=== PATIENT | male | born 1975 | race Caucasian/White ===

== ENCOUNTER 2018-01-10 09:24 | Observation (INO) | payer BC ==
[2018-01-10] MEDS ORDERED: Sodium Chloride 0.9% 2.5 ML Syringe FLUSH PRN (09:43)
[2018-01-10] MEDS ORDERED: Aspirin 81 MG Tab.Chew PO ONE (09:43)
[2018-01-10] MEDS ORDERED: Sodium Chloride 0.9% 10 ML Syringe FLUSH PRN (09:43)
[2018-01-10] MEDS ORDERED: Ketorolac 30 MG/ML SDV IVPUSH ONE (09:43)
[2018-01-10] MEDS ORDERED: Morphine 10 MG/ML Syringe IVPUSH ONE (09:43)
[2018-01-10] MEDS ORDERED: Sodium Chloride 0.9% 1,000 ML IV ONE (09:43)
--- NOTE | 2018-01-10 09:47 | EDM.PDOC ---
ED HPI GENERAL MEDICAL PROBLEM - General Chief Complaint: Chest Pain Stated Complaint: CHEST PAIN Time Seen by Provider: 01/10/18 09:32 - History of Present Illness INITIAL COMMENTS - FREE TEXT/NARRATIVE: HISTORY AND PHYSICAL: History of present illness: The patient is a 42-year-old male with a history of sleep apnea for which he uses C Pap and hypercholesterolemia and follows with a provider at [facility] and presents with complaints of sudden onset of posterior left back pain that radiates around to his left chest. He is not short of breath or diaphoretic and has no abdominal complaints. He does not have a history of hypertension and he has had no recent trauma. The patient has no family history of cardiac disease. The patient smokes a pack and a half of cigarettes a day but has no other drug use history. He describes the pain as sharp and stabbing and is worse when he takes a deep breath. He does not feel short of breath right now or nauseated. He had a completely normal day yesterday and slept fine through the night and had a normal morning when these symptoms started about an hour and a half ago while he was driving a car. 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 The patient took 2 baby aspirin prior to coming here and the pain is still present. He has had no recent new cough or upper respiratory symptoms. Review of systems: As per history of present illness and below otherwise all systems reviewed and negative. Past medical history: As per history of present illness and as reviewed below otherwise noncontributory. Surgical history: As per history of present illness and as reviewed below otherwise noncontributory. Social history: No reported history of drug or alcohol abuse. Family history: As per history of present illness and as reviewed below otherwise noncontributory. Physical exam: General: Well-developed well-nourished man who is nontoxic and vital signs are noted by me including normal blood pressure--- on my evaluation it was 130s over 80s HEENT: Atraumatic, normocephalic, pupils reactive, negative for conjunctival pallor or scleral icterus, mucous membranes moist, throat clear, neck supple, nontender, trachea midline. Lungs: Clear to auscultation, breath sounds equal bilaterally, chest nontender. There is no work of breathing wheezing or stridor Heart: S1S2, regular rate and rhythm no overt murmurs Abdomen: Soft, nondistended, nontender. Negative for masses or hepatosplenomegaly. Negative for costovertebral tenderness. Pelvis: Stable nontender. Genitourinary: Deferred. Rectal: Deferred. Extremities: Atraumatic, negative for cords or calf pain. Neurovascular unremarkable. No pedal edema or leg asymmetry Neuro: Awake, alert, oriented. Cranial nerves II through XII unremarkable. Cerebellum unremarkable. Motor and sensory unremarkable throughout. Exam nonfocal. BPs in right and left arms are comparable Diagnostics: EKG CBC CMP troponin INR d-dimer CTA of the chest UA Therapeutics: IV O2 monitor IV fluids 2 baby aspirin as patient took 2 prior to arrival, morphine Patient is aware of all testing results and is agreeable for observation admission. His pain is significantly better but he still very concerned as he has never had anything like this before. Dr. Miller at 11:45 AM and he accepts the patient for observation admission Impression: Left back and atypical left chest pain rule out ACS Definitive disposition and diagnosis as appropriate pending reevaluation and review of above. chest pain Pain Score (Numeric/FACES): 8 - Related Data Allergies Allergy/AdvReac Type Severity Reaction Status Date / Time bee venom protein (honey bee) Allergy Other Verified 01/10/18 09:39 Past Medical History Cardiovascular History: Reports: High Cholesterol - Infectious Disease History Infectious Disease History: Reports: None Social & Family History - Family History Family Medical History: Noncontributory - Tobacco Use Smoking Status *Q: Current Every Day Smoker Years of Tobacco use: 20 Packs/Tins Daily: 1.5 - Recreational Drug Use Recreational Drug Use: No ED ROS GENERAL - Review of Systems Review Of Systems: ROS reveals no pertinent complaints other than HPI. ED EXAM, GENERAL - Physical Exam Exam: See Below (See dictation) Course - Vital Signs Last Recorded V/S: Last Vital Signs Temp 36.9 C 01/10/18 09:36 Pulse 66 01/10/18 09:36 Resp 20 01/10/18 09:36 BP 146/93 H 01/10/18 09:36 Pulse Ox 97 01/10/18 09:42 - Orders/Labs/Meds Orders: Active Orders 24 hr Category Date Time Status Cardiac Monitoring [RC] . DIRECTED Care 01/10/18 09:42 Active EKG 12 Lead [EKG Documentation Completion] [] STAT Care 01/10/18 09:37 Active Oxygen Therapy, ED [] ASDIRECTED Care 01/10/18 09:42 Active Pulse Oximetry [RC] ASDIRECTED Care 01/10/18 09:42 Active UA W/MICROSCOPIC [URIN] Stat Lab 01/10/18 09:47 Ordered Sodium Chloride 0.9% [Normal Saline] 500 ml Med 01/10/18 11:15 Active IV .BOLUS Sodium Chloride 0.9% [Saline Flush] Med 01/10/18 09:43 Active 10 ml FLUSH ASDIRECTED PRN Sodium Chloride 0.9% [Saline Flush] Med 01/10/18 09:43 Active 2.5 ml FLUSH ASDIRECTED PRN Saline Lock Insert [OM.PC] Stat Oth 01/10/18 09:42 Ordered Medication Orders Sodium Chloride (Normal Saline) 500 mls @ 999 mls/hr IV .BOLUS CHRIS Last Admin: 01/10/18 11:27 Dose: 999 mls/hr Sodium Chloride (Saline Flush) 10 ml FLUSH ASDIRECTED PRN PRN Reason: Keep Vein Open Sodium Chloride (Saline Flush) 2.5 ml FLUSH ASDIRECTED PRN PRN Reason: Keep Vein Open Labs: Laboratory Tests 01/10/18 01/10/18 01/10/18 Range/Units 09:32 09:32 09:32 WBC 10.02 (4.0-11.0) K/uL RBC 5.35 (4.50-5.90) M/uL Hgb 16.1 (13.0-17.0) g/dL Hct 45.3 (38.0-50.0) % MCV 84.7 (80.0-98.0) fL MCH 30.1 (27.0-32.0) pg MCHC 35.5 (31.0-37.0) g/dL RDW Std Deviation 42.7 (28.0-62.0) fl RDW Coeff of Hiram 14 (11.0-15.0) % Plt Count 222 (150-400) K/uL MPV 9.70 (7.40-12.00) fL Neut % (Auto) 61.0 (48.0-80.0) % Lymph % (Auto) 27.8 (16.0-40.0) % [place] % (Auto) 7.1 (0.0-15.0) % Eos % (Auto) 3.7 (0.0-7.0) % Baso % (Auto) 0.4 (0.0-1.5) % Neut # (Auto) 6.1 H (1.4-5.7) K/uL Lymph # (Auto) 2.8 H (0.6-2.4) K/uL [place] # (Auto) 0.7 (0.0-0.8) K/uL Eos # (Auto) 0.4 (0.0-0.7) K/uL Baso # (Auto) 0.0 (0.0-0.1) K/uL Nucleated RBC % 0.0 /100WBC Nucleated RBCs # 0 K/uL INR 0.95 D-Dimer, Quantitative 0.55 H (0.0-0.52) mg/LFEU Sodium 137 (136-148) mmol/L Potassium 4.2 (3.5-5.1) mmol/L Chloride 102 (98-107) mmol/L Carbon Dioxide 28.9 (21.0-32.0) mmol/L BUN 17 (7.0-18.0) mg/dL Creatinine 1.1 (0.8-1.3) mg/dL Est Cr Clr Drug Dosing 87.48 mL/min Estimated GFR (MDRD) > 60.0 ml/min Glucose 107 H (74-106) mg/dL Calcium 9.0 (8.5-10.1) mg/dL Total Bilirubin 0.6 (0.2-1.0) mg/dL AST 30 (15-37) IU/L ALT 58 (14-63) IU/L Alkaline Phosphatase 101 (46-116) U/L Troponin I < 0.050 (0.000-0.056) ng/mL Total Protein 7.3 (6.4-8.2) g/dL Albumin 3.7 (3.4-5.0) g/dL Globulin 3.6 H (2.0-3.5) g/dL Albumin/Globulin Ratio 1.0 L (1.3-2.8) Urine Color Urine Appearance Urine pH (5.0-8.0) Ur Specific [place] (1.001-1.035) Urine Protein (NEGATIVE) mg/dL Urine Glucose (UA) (NEGATIVE) mg/dL Urine Ketones (NEGATIVE) mg/dL Urine Occult Blood (NEGATIVE) Urine Nitrite (NEGATIVE) Urine Bilirubin (NEGATIVE) Urine Urobilinogen (<2.0) EU/dL Ur Leukocyte Esterase (NEGATIVE) Urine RBC (0-2/HPF) Urine WBC (0-5/HPF) Ur Epithelial Cells (NONE-FEW) Urine Bacteria (NEGATIVE) 01/10/18 Range/Units 09:47 WBC (4.0-11.0) K/uL RBC (4.50-5.90) M/uL Hgb (13.0-17.0) g/dL Hct (38.0-50.0) % MCV (80.0-98.0) fL MCH (27.0-32.0) pg MCHC (31.0-37.0) g/dL RDW Std Deviation (28.0-62.0) fl RDW Coeff of Hiram (11.0-15.0) % Plt Count (150-400) K/uL MPV (7.40-12.00) fL Neut % (Auto) (48.0-80.0) % Lymph % (Auto) (16.0-40.0) % [place] % (Auto) (0.0-15.0) % Eos % (Auto) (0.0-7.0) % Baso % (Auto) (0.0-1.5) % Neut # (Auto) (1.4-5.7) K/uL Lymph # (Auto) (0.6-2.4) K/uL [place] # (Auto) (0.0-0.8) K/uL Eos # (Auto) (0.0-0.7) K/uL Baso # (Auto) (0.0-0.1) K/uL Nucleated RBC % /100WBC Nucleated RBCs # K/uL INR D-Dimer, Quantitative (0.0-0.52) mg/LFEU Sodium (136-148) mmol/L Potassium (3.5-5.1) mmol/L Chloride (98-107) mmol/L Carbon Dioxide (21.0-32.0) mmol/L BUN (7.0-18.0) mg/dL Creatinine (0.8-1.3) mg/dL Est Cr Clr Drug Dosing mL/min Estimated GFR (MDRD) ml/min Glucose (74-106) mg/dL Calcium (8.5-10.1) mg/dL Total Bilirubin (0.2-1.0) mg/dL AST (15-37) IU/L ALT (14-63) IU/L Alkaline Phosphatase (46-116) U/L Troponin I (0.000-0.056) ng/mL Total Protein (6.4-8.2) g/dL Albumin (3.4-5.0) g/dL Globulin (2.0-3.5) g/dL Albumin/Globulin Ratio (1.3-2.8) Urine Color YELLOW Urine Appearance CLEAR Urine pH 6.0 (5.0-8.0) Ur Specific [place] <= 1.005 (1.001-1.035) Urine Protein NEGATIVE (NEGATIVE) mg/dL Urine Glucose (UA) NEGATIVE (NEGATIVE) mg/dL Urine Ketones NEGATIVE (NEGATIVE) mg/dL Urine Occult Blood NEGATIVE (NEGATIVE) Urine Nitrite NEGATIVE (NEGATIVE) Urine Bilirubin NEGATIVE (NEGATIVE) Urine Urobilinogen 0.2 (<2.0) EU/dL Ur Leukocyte Esterase NEGATIVE (NEGATIVE) Urine RBC 0-1 (0-2/HPF) Urine WBC 0-1 (0-5/HPF) Ur Epithelial Cells RARE (NONE-FEW) Urine Bacteria RARE (NEGATIVE) Meds: Medications Generic Name Dose Route Start Last Admin Trade Name Odalis PRN Reason Stop Dose Admin Sodium Chloride 500 mls @ 999 mls/hr 01/10/18 11:15 01/10/18 11:27 Normal Saline IV 999 mls/hr .BOLUS CHRIS Administration Sodium Chloride 10 ml 01/10/18 09:43 Saline Flush FLUSH ASDIRECTED PRN Keep Vein Open Sodium Chloride 2.5 ml 01/10/18 09:43 Saline Flush FLUSH ASDIRECTED PRN Keep Vein Open Discontinued Medications Generic Name Dose Route Start Last Admin Trade Name Fremisael PRN Reason Stop Dose Admin Aspirin 162 mg 01/10/18 09:43 01/10/18 09:53 Aspirin PO 01/10/18 09:44 162 mg ONETIME ONE Administration Sodium Chloride 1,000 mls @ 999 mls/hr 01/10/18 09:43 01/10/18 09:57 Normal Saline IV 01/10/18 10:43 999 mls/hr STAT ONE Administration Iopamidol 140 ml 01/10/18 11:14 01/10/18 11:15 Isovue Multipack-370 (76%) IVPUSH 01/10/18 11:15 140 ml ONETIME STA Administration Ketorolac Tromethamine 30 mg 01/10/18 09:43 01/10/18 09:54 Toradol IVPUSH 01/10/18 09:44 30 mg ONETIME ONE Administration Morphine Sulfate 5 mg 01/10/18 09:43 01/10/18 09:55 Morphine IVPUSH 01/10/18 09:44 5 mg ONETIME ONE Administration Departure - Departure Time of Disposition: 11:48 Disposition: Refer to Observation Condition: Good Clinical Impression: Atypical chest pain - Discharge Information Forms: ED Department Discharge - My Orders Last 24 Hours: My Active Orders 01/10/18 09:37 EKG 12 Lead [EKG Documentation Completion] [RC] STAT 01/10/18 09:42 Cardiac Monitoring [RC] . DIRECTED Oxygen Therapy, ED [RC] ASDIRECTED Pulse Oximetry [RC] ASDIRECTED Saline Lock Insert [OM.PC] Stat 01/10/18 09:43 Sodium Chloride 0.9% [Saline Flush] 10 ml FLUSH ASDIRECTED PRN Sodium Chloride 0.9% [Saline Flush] 2.5 ml FLUSH ASDIRECTED PRN 01/10/18 09:47 UA W/MICROSCOPIC [URIN] Stat 01/10/18 11:15 Sodium Chloride 0.9% [Normal Saline] 500 ml IV .BOLUS - Assessment/Plan Last 24 Hours: My Active Orders 01/10/18 09:37 EKG 12 Lead [EKG Documentation Completion] [RC] STAT 01/10/18 09:42 Cardiac Monitoring [RC] . DIRECTED Oxygen Therapy, ED [RC] ASDIRECTED Pulse Oximetry [RC] ASDIRECTED Saline Lock Insert [OM.PC] Stat 01/10/18 09:43 Sodium Chloride 0.9% [Saline Flush] 10 ml FLUSH ASDIRECTED PRN Sodium Chloride 0.9% [Saline Flush] 2.5 ml FLUSH ASDIRECTED PRN 01/10/18 09:47 UA W/MICROSCOPIC [URIN] Stat 01/10/18 11:15 Sodium Chloride 0.9% [Normal Saline] 500 ml IV .BOLUS
[2018-01-10 10:24] LABS: CHLORIDE,CL 102 mmol/L (98-107); SODIUM,NA 137 mmol/L (136-148)
[2018-01-10] MEDS ORDERED: Iopamidol 755 MG/ML 500 ML Multipack Bottle IVPUSH STA (11:14)
[2018-01-10] MEDS ORDERED: Sodium Chloride 0.9% 500 ML IV SCH (11:15)
--- NOTE | 2018-01-10 11:24 | CT ---
EXAMINATION: CTA chest HISTORY: Pain COMPARISON: None TECHNIQUE: Axial CT images obtained through the chest using a total of 140 mL of Isovue-370. Coronal and sagittal reconstructions obtained. A repeat image was obtained due to poor bolus timing. FINDINGS: The lungs are clear without focal consolidation. No pleural effusion or pneumothorax. Mild dependent atelectasis. The heart is normal in size without a pericardial effusion. No mediastinal, hi lar, or axillary lymphadenopathy. Thoracic aorta is normal in caliber without an overt dissection.. T he main and central pulmonary arteries are patent.. No pulmonary embolism identified. Central airways are clear. Mild coronary artery calcifications. Visualized images of the upper abdomen appear normal. No suspicious osseous abnormalities identified. IMPRESSION: 1. No acute cardiopulmonary findings. 2. No pulmonary embolism identified. 3. No overt dissection. 4. Mild coronary artery calcifications.
[2018-01-10] MEDS ORDERED: Ondansetron 4 MG Tab.DIS PO PRN (12:02)
[2018-01-10] MEDS ORDERED: Acetaminophen 325 MG Tab PO PRN (12:02)
[2018-01-10] MEDS ORDERED: Morphine 2 MG/ML Syringe IVPUSH PRN (12:06)
--- NOTE | 2018-01-10 12:07 | PCM.HP ---
H&P History of Present Illness - General Date of Service: 01/10/18 Admit Problem/Dx: Admission Diagnosis/Problem Admission Diagnosis/Problem Atypical chest pain Source of Information: Patient History Limitations: Reports: No Limitations - History of Present Illness Initial Comments - Free Text/Narative: This 42 year old male with pmh of hypercholesterolemia and CARRILLO with CPAP presented to the ED today after he started having L upper back pain which radiated to his L anterior chest. He reports had a normal day yesterday, worked road construction and slept well overnight. He woke up and started heading to work and around 6:30 this morning the pain started. The pain was to his L upper back shoulder blade region, sharp shooting in nature with radiation to his L anterior chest where is settled. He denies other associated symptoms such as SOB , palpitations, diaphoresis, nausea or vomiting. No radiation to jaw or L arm. He denies this ever happening before. He reports eating breakfast about 1 hr prior to this event happening. Denies heartburn or GERD like symptoms. He denies recent fever, chills, cough or abdominal pain. No urinary symptoms. NO recent trauma or injuries. He was lifting 2x4's yesterday, but work wasn't overly demanding with heavy lifting or awkward positions. He denies known HTN, CAD or DM for him or his family. He denies ever having a stress test. He does smoke 1 1/2 ppd for 20 years, rare alcohol use and no recreational drug use. He took 2 ASA prior to arrival. In the ED, D dimer slightly elevated 0.55. Glucose 107. BMP WNL. Troponin negative. UA negative. EKG SR with no acute ischemic changes noted. BP on arrival 146/63 HR 60s. He was given Toradol and Morphine 5 mg IV, which helped the pain. CT angio obtained as well which was negative. He will be admitted with atypical chest pain. PCP is in [place], [place] chest pain Pain Score (Numeric/FACES): 8 - Related Data Allergies/Adverse Reactions: Allergies Allergy/AdvReac Type Severity Reaction Status Date / Time bee venom protein (honey bee) Allergy Other Verified 01/10/18 09:39 Past Medical History HEENT History: Reports: None Cardiovascular History: Reports: High Cholesterol. Denies: Afib, Blood Clots/ VTE/DVT, CAD, Hypertension Respiratory History: Reports: Sleep Apnea (uses CPAP). Denies: Asthma, COPD Gastrointestinal History: Reports: None. Denies: GERD, GI Bleed Musculoskeletal History: Reports: None Psychiatric History: Reports: None Endocrine/Metabolic History: Reports: Obesity/BMI 30+. Denies: Diabetes, Type II, Hypothyroidism - Infectious Disease History Infectious Disease History: Reports: None - Past Surgical History HEENT Surgical History: Reports: Tonsillectomy (as a child, 6 yrs old) Musculoskeletal Surgical History: Reports: Arthroscopic Knee Social & Family History - Family History Family Medical History: Noncontributory - Tobacco Use Smoking Status *Q: Current Every Day Smoker Years of Tobacco use: 20 Packs/Tins Daily: 1.5 - Alcohol Use Alcohol Use History: No - Recreational Drug Use Recreational Drug Use: No - Living Situation & Occupation Occupation: Employed H&P Review of Systems - Review of Systems: Review Of Systems: See Below General: Reports: No Symptoms. Denies: Fever, Chills, Malaise, Weakness HEENT: Reports: No Symptoms. Denies: Headaches, Sinus Congestion, Sore Throat, Vertigo Pulmonary: Denies: Shortness of Breath, Wheezing, Pleuritic Chest Pain, Cough, Sputum Cardiovascular: Reports: Chest Pain (radiated to chest from L upper back. ). Denies: Palpitations, Dyspnea on Exertion, Edema Gastrointestinal: Reports: No Symptoms. Denies: Abdominal Pain, Black Stool, Bloody Stool, Diarrhea, Decreased Appetite, Distension, Hematemesis, Hematochezia, Nausea, Vomiting Genitourinary: Reports: No Symptoms. Denies: Dysuria, Frequency, Burning Musculoskeletal: Reports: Back Pain (radiated to L chest, now nearly gone after Morphine) Skin: Reports: No Symptoms Neurological: Reports: No Symptoms Hematologic/Lymphatic: Reports: No Symptoms Immunologic: Reports: No Symptoms Exam - Exam Exam: See Below - Vital Signs Vital Signs: Last Vital Signs Temp 98.4 F 01/10/18 09:36 Pulse 59 L 01/10/18 12:01 Resp 16 01/10/18 12:01 BP 151/93 H 01/10/18 12:01 Pulse Ox 95 01/10/18 12:01 Weight: 107 kg - Exam General: Alert, Oriented, Cooperative HEENT: Conjunctiva Clear, Mucosa Moist & [place], Posterior Pharynx Clear, Pupils Equal Neck: Supple, Trachea Midline Lungs: Clear to Auscultation, Normal Respiratory Effort Cardiovascular: Regular Rate, Regular Rhythm, Normal S1, Normal S2. No: Systolic Murmur GI/Abdominal Exam: Normal Bowel Sounds, Soft, Non-Tender Back Exam: Normal Inspection, Full Range of Motion Extremities: Normal Inspection, Normal Range of Motion, Non-Tender, No Pedal Edema Neurological: Babinski Absent Neuro Extensive - Mental Status: Alert Neuro Extensive - Motor, Sensory, Reflexes: CN II-XII Intact Psychiatric: Alert, Normal Affect, Normal Mood - Patient Data Lab Results Last 24 hrs: Laboratory Results - last 24 hr 01/10/18 01/10/18 01/10/18 Range/Units 09:32 09:32 09:32 WBC 10.02 (4.0-11.0) K/uL RBC 5.35 (4.50-5.90) M/uL Hgb 16.1 (13.0-17.0) g/dL Hct 45.3 (38.0-50.0) % MCV 84.7 (80.0-98.0) fL MCH 30.1 (27.0-32.0) pg MCHC 35.5 (31.0-37.0) g/dL RDW Std Deviation 42.7 (28.0-62.0) fl RDW Coeff of Hir[place] 14 (11.0-15.0) % Plt Count 222 (150-400) K/uL MPV 9.70 (7.40-12.00) fL Neut % (Auto) 61.0 (48.0-80.0) % Lymph % (Auto) 27.8 (16.0-40.0) % [place] % (Auto) 7.1 (0.0-15.0) % Eos % (Auto) 3.7 (0.0-7.0) % Baso % (Auto) 0.4 (0.0-1.5) % Neut # (Auto) 6.1 H (1.4-5.7) K/uL Lymph # (Auto) 2.8 H (0.6-2.4) K/uL [place] # (Auto) 0.7 (0.0-0.8) K/uL Eos # (Auto) 0.4 (0.0-0.7) K/uL Baso # (Auto) 0.0 (0.0-0.1) K/uL Nucleated RBC % 0.0 /100WBC Nucleated RBCs # 0 K/uL INR 0.95 D-Dimer, Quantitative 0.55 H (0.0-0.52) mg/LFEU Sodium 137 (136-148) mmol/L Potassium 4.2 (3.5-5.1) mmol/L Chloride 102 (98-107) mmol/L Carbon Dioxide 28.9 (21.0-32.0) mmol/L BUN 17 (7.0-18.0) mg/dL Creatinine 1.1 (0.8-1.3) mg/dL Est Cr Clr Drug Dosing 87.48 mL/min Estimated GFR (MDRD) > 60.0 ml/min Glucose 107 H (74-106) mg/dL Calcium 9.0 (8.5-10.1) mg/dL Total Bilirubin 0.6 (0.2-1.0) mg/dL AST 30 (15-37) IU/L ALT 58 (14-63) IU/L Alkaline Phosphatase 101 (46-116) U/L Troponin I < 0.050 (0.000-0.056) ng/mL Total Protein 7.3 (6.4-8.2) g/dL Albumin 3.7 (3.4-5.0) g/dL Globulin 3.6 H (2.0-3.5) g/dL Albumin/Globulin Ratio 1.0 L (1.3-2.8) Urine Color Urine Appearance Urine pH (5.0-8.0) Ur Specific [place] (1.001-1.035) Urine Protein (NEGATIVE) mg/dL Urine Glucose (UA) (NEGATIVE) mg/dL Urine Ketones (NEGATIVE) mg/dL Urine Occult Blood (NEGATIVE) Urine Nitrite (NEGATIVE) Urine Bilirubin (NEGATIVE) Urine Urobilinogen (<2.0) EU/dL Ur Leukocyte Esterase (NEGATIVE) Urine RBC (0-2/HPF) Urine WBC (0-5/HPF) Ur Epithelial Cells (NONE-FEW) Urine Bacteria (NEGATIVE) 01/10/18 Range/Units 09:47 WBC (4.0-11.0) K/uL RBC (4.50-5.90) M/uL Hgb (13.0-17.0) g/dL Hct (38.0-50.0) % MCV (80.0-98.0) fL MCH (27.0-32.0) pg MCHC (31.0-37.0) g/dL RDW Std Deviation (28.0-62.0) fl RDW Coeff of [place]am (11.0-15.0) % Plt Count (150-400) K/uL MPV (7.40-12.00) fL Neut % (Auto) (48.0-80.0) % Lymph % (Auto) (16.0-40.0) % [place] % (Auto) (0.0-15.0) % Eos % (Auto) (0.0-7.0) % Baso % (Auto) (0.0-1.5) % Neut # (Auto) (1.4-5.7) K/uL Lymph # (Auto) (0.6-2.4) K/uL [place] # (Auto) (0.0-0.8) K/uL Eos # (Auto) (0.0-0.7) K/uL Baso # (Auto) (0.0-0.1) K/uL Nucleated RBC % /100WBC Nucleated RBCs # K/uL INR D-Dimer, Quantitative (0.0-0.52) mg/LFEU Sodium (136-148) mmol/L Potassium (3.5-5.1) mmol/L Chloride (98-107) mmol/L Carbon Dioxide (21.0-32.0) mmol/L BUN (7.0-18.0) mg/dL Creatinine (0.8-1.3) mg/dL Est Cr Clr Drug Dosing mL/min Estimated GFR (MDRD) ml/min Glucose (74-106) mg/dL Calcium (8.5-10.1) mg/dL Total Bilirubin (0.2-1.0) mg/dL AST (15-37) IU/L ALT (14-63) IU/L Alkaline Phosphatase (46-116) U/L Troponin I (0.000-0.056) ng/mL Total Protein (6.4-8.2) g/dL Albumin (3.4-5.0) g/dL Globulin (2.0-3.5) g/dL Albumin/Globulin Ratio (1.3-2.8) Urine Color YELLOW Urine Appearance CLEAR Urine pH 6.0 (5.0-8.0) Ur Specific [place] <= 1.005 (1.001-1.035) Urine Protein NEGATIVE (NEGATIVE) mg/dL Urine Glucose (UA) NEGATIVE (NEGATIVE) mg/dL Urine Ketones NEGATIVE (NEGATIVE) mg/dL Urine Occult Blood NEGATIVE (NEGATIVE) Urine Nitrite NEGATIVE (NEGATIVE) Urine Bilirubin NEGATIVE (NEGATIVE) Urine Urobilinogen 0.2 (<2.0) EU/dL Ur Leukocyte Esterase NEGATIVE (NEGATIVE) Urine RBC 0-1 (0-2/HPF) Urine WBC 0-1 (0-5/HPF) Ur Epithelial Cells RARE (NONE-FEW) Urine Bacteria RARE (NEGATIVE) Result Diagrams: 01/10/18 09:32 01/10/18 09:32 EKG INTERPRETATION EKG Date: 01/10/18 Rate (Beats/Min): 65 P-Wave: Present QRS: Normal ST-T: Normal QT: Normal *Q Meaningful Use (ADM) - VTE Risk Assess *Q Each Risk Factor Represents 1 Point: Age 41 - 59 years Total Score 1 Point Risk Factors: 1 Each Risk Factor Represents 2 Points: None Total Score 2 Point Risk Factors: 0 Each Risk Factor Represents 3 Points: None Total Score 3 Point Risk Factors: 0 Each Risk Factor Represents 5 Points: None Total Score 5 Point Risk Factors: 0 Venous Thromboembolism Risk Factor Score *Q: 1 - Problem List (1) Atypical chest pain SNOMED Code(s): 200448564 ICD Code: R07.89 - OTHER CHEST PAIN Status: Acute Current Visit: Yes (2) CARRILLO on CPAP SNOMED Code(s): 15807632 ICD Code: G47.33 - OBSTRUCTIVE SLEEP APNEA (ADULT) (PEDIATRIC); Z99.89 - DEPENDENCE ON OTHER ENABLING MACHINES AND DEVICES Status: Chronic Current Visit: Yes (3) Hypercholesteremia SNOMED Code(s): 70548622 ICD Code: E78.00 - PURE HYPERCHOLESTEROLEMIA, UNSPECIFIED Status: Chronic Current Visit: Yes (4) Tobacco abuse SNOMED Code(s): 515777447 ICD Code: Z72.0 - TOBACCO USE Status: Chronic Current Visit: Yes Problem List Initiated/Reviewed/Updated: Yes Orders Last 24hrs: Active Orders 24 hr Category Date Time Status Patient Status [ADT] Stat ADT 01/10/18 11:48 Active Cardiac Monitoring [RC] . DIRECTED Care 01/10/18 09:42 Active EKG 12 Lead [EKG Documentation Completion] [RC] STAT Care 01/10/18 09:37 Active Intake and Output [RC] QSHIFT Care 01/10/18 12:02 Ordered Oxygen Therapy [RC] PRN Care 01/10/18 12:02 Ordered Oxygen Therapy, ED [RC] ASDIRECTED Care 01/10/18 09:42 Active Pulse Oximetry [RC] ASDIRECTED Care 01/10/18 09:42 Active Telemetry Monitoring [Cardiac Monitoring] [RC] . Care 01/10/18 12:07 Ordered DIRECTED Up ad Nikky [RC] ASDIRECTED Care 01/10/18 12:02 Ordered VTE/DVT Education [RC] PER UNIT ROUTINE Care 01/10/18 12:02 Ordered Vital Signs [RC] Q4H Care 01/10/18 12:02 Ordered Heart Healthy Diet [DIET] Diet 01/10/18 Lunch Ordered GLYCOSYLATED HEMOGLOBIN,HGBA1C [CHEM] Routine Lab 01/10/18 12:02 Ordered LIPID PANEL [CHEM] AM Lab 01/11/18 05:11 Ordered TROPONIN I [CHEM] Q6H Lab 01/10/18 15:30 Ordered TROPONIN I [CHEM] Q6H Lab 01/10/18 21:30 Ordered UA W/MICROSCOPIC [URIN] Stat Lab 01/10/18 09:47 Ordered Acetaminophen [Tylenol] Med 01/10/18 12:02 Ordered 650 mg PO Q4H PRN Morphine Med 01/10/18 12:06 Ordered 2 mg IVPUSH Q4H PRN Ondansetron [Zofran ODT] Med 01/10/18 12:02 Ordered 4 mg PO Q4H PRN Sodium Chloride 0.9% [Normal Saline] 500 ml Med 01/10/18 11:15 Active IV .BOLUS Sodium Chloride 0.9% [Saline Flush] Med 01/10/18 09:43 Active 10 ml FLUSH ASDIRECTED PRN Sodium Chloride 0.9% [Saline Flush] Med 01/10/18 09:43 Active 2.5 ml FLUSH ASDIRECTED PRN Saline Lock Insert [OM.PC] Stat Oth 01/10/18 09:42 Ordered Sequential Compression Device [OM.PC] Per Unit Routine Oth 01/10/18 12:02 Ordered Resuscitation Status Routine Resus Stat 01/10/18 12:02 Ordered Medication Orders Acetaminophen (Tylenol) 650 mg PO Q4H PRN PRN Reason: Pain (mild 1-3) Sodium Chloride (Normal Saline) 500 mls @ 999 mls/hr IV .BOLUS CHRIS Last Admin: 01/10/18 11:27 Dose: 999 mls/hr Morphine Sulfate (Morphine) 2 mg IVPUSH Q4H PRN PRN Reason: severe pain Ondansetron HCl (Zofran Odt) 4 mg PO Q4H PRN PRN Reason: nausea, able to take PO Sodium Chloride (Saline Flush) 10 ml FLUSH ASDIRECTED PRN PRN Reason: Keep Vein Open Sodium Chloride (Saline Flush) 2.5 ml FLUSH ASDIRECTED PRN PRN Reason: Keep Vein Open Assessment/Plan Comment:: This 42 year old male admitted with atypical chest pain 1. Atypical chest pain: Was located in back then radiated to L upper chest. Now nearly gone after Morphine and Toradol. Will trend troponins and monitor on telemetry. Obtain Lipid and A1c. Will need outpatient stress test. 2. Tobacco abuse: Counseled on tobacco cessation, he has thought about it, but currently has no plans to quit. Educated him due to admission for chest pain, will not be allowed tobacco replacement or to go out and smoke. He verbalized understanding. 3. Hypercholesterolemia: Will check lipid panel. Reports on a statin. Will bring in, unsure of name. Continue this. VTE prophylaxis: SCDs and ambulation Dispo: in am.
[2018-01-11 07:50] VITALS: BP 114/75
--- NOTE | 2018-01-11 08:19 | PCM.DCSUM1 ---
Discharge Summary - Hospital Course Brief History: This 42 year old male with pmh of hypercholesterolemia and CARRILLO with CPAP presented to the ED today after he started having L upper back pain which radiated to his L anterior chest. He reports had a normal day yesterday, worked road construction and slept well overnight. He woke up and started heading to work and around 6:30 this morning the pain started. The pain was to his L upper back shoulder blade region, sharp shooting in nature with radiation to his L anterior chest where is settled. He denies other associated symptoms such as SOB, palpitations, diaphoresis, nausea or vomiting. No radiation to jaw or L arm. He denies this ever happening before. He reports eating breakfast about 1 hr prior to this event happening. Denies heartburn or GERD like symptoms. He denies recent fever, chills, cough or abdominal pain. No urinary symptoms. NO recent trauma or injuries. He was lifting 2x4's yesterday, but work wasn't overly demanding with heavy lifting or awkward positions. He denies known HTN, CAD or DM for him or his family. He denies ever having a stress test. He does smoke 1 1/2 ppd for 20 years, rare alcohol use and no recreational drug use. He took 2 ASA prior to arrival. In the ED, D dimer slightly elevated 0.55. Glucose 107. BMP WNL. Troponin negative. UA negative. EKG SR with no acute ischemic changes noted. BP on arrival 146/63 HR 60s. He was given Toradol and Morphine 5 mg IV, which helped the pain. CT angio obtained as well which was negative. He will be admitted with atypical chest pain. PCP is in [place], [place] - Discharge Data Discharge Date: 01/11/18 Discharge Disposition: Home, Self-Care 01 Condition: Good - Discharge Diagnosis/Problem(s) (1) Atypical chest pain SNOMED Code(s): 315583768 ICD Code: R07.89 - OTHER CHEST PAIN Status: Acute (2) CARRILLO on CPAP SNOMED Code(s): 77128326 ICD Code: G47.33 - OBSTRUCTIVE SLEEP APNEA (ADULT) (PEDIATRIC); Z99.89 - DEPENDENCE ON OTHER ENABLING MACHINES AND DEVICES Status: Chronic (3) Hypercholesteremia SNOMED Code(s): 47753337 ICD Code: E78.00 - PURE HYPERCHOLESTEROLEMIA, UNSPECIFIED Status: Chronic (4) Tobacco abuse SNOMED Code(s): 347806303 ICD Code: Z72.0 - TOBACCO USE Status: Chronic - Patient Instructions Diet: Heart Healthy Diet Activity: No Strenuous Activities Showering/Bathing: May Shower Notify Provider of: Fever, Increased Pain, Swelling and Redness, Drainage, Nausea and/or Vomiting - Discharge Plan Home Medications: Home Meds Rosuvastatin [Crestor] 20 mg PO DAILY 01/10/18 [History] Aspirin 81 mg PO DAILY tab.chew 01/11/18 [Rx] Patient Handouts: Nonspecific Chest Pain, [id number] Referrals: [facility] [Outside] Bakari Holland MD [Resident] - 01/26/18 3:30 pm - Discharge Summary/Plan Comment DC Time >30 min.: No Discharge Summary/Plan Comment: Discharge Diagnoses: Atypical chest pain- resolved Hyperchoelsterolemia Tobacco abuse Cisco was admitted monitored for atypical chest pain rule out ACS. Troponins monitored and negative, Telemetry SR with no ischemic changes. Chest pain and shoulder pain did not return during stay. he is feeling much better today. Denies pain and is eager to be discharged home. A1c 5.3 and Lipid panel well controlled. He is to continue statin, take a daily ASA and was highly encouraged to quit smoking, which he again rpeorts not being ready to do now. He will be scheduled for outpatient stress test here in [place] and follow up here in [place] due to his job being here currently. PCP in [place] is LYNDA Dasilva. He is to return to the ED or clinic if concerns should arise. Pain likely secondary to musculoskeletal pain from strenuous job. Work release given for light work until stress test can be completed. - General Info Date of Service: 01/11/18 Admission Dx/Problem (Free Text: Admission Diagnosis/Problem Admission Diagnosis/Problem Atypical chest pain Subjective Update: Doing well, no chest pain this morning or since admission. Eager to be discharged home. No chest pain or SOB. No back or shoulder pain. Functional Status: Reports: Pain Controlled, Tolerating Diet, Ambulating, Urinating - Review of Systems General: Reports: No Symptoms. Denies: Fever, Weakness, Fatigue Pulmonary: Reports: No Symptoms. Denies: Shortness of Breath, Cough, Sputum Cardiovascular: Reports: No Symptoms. Denies: Chest Pain, Palpitations, Edema Gastrointestinal: Reports: No Symptoms. Denies: Abdominal Pain, Nausea, Vomiting Genitourinary: Reports: No Symptoms. Denies: Dysuria, Frequency, Burning Neurological: Reports: No Symptoms Psychiatric: Reports: No Symptoms - Patient Data Vitals - Most Recent: Last Vital Signs Temp 98.4 F 01/11/18 07:48 Pulse 58 L 01/11/18 07:48 Resp 18 01/11/18 07:48 BP 114/75 01/11/18 07:48 Pulse Ox 95 01/11/18 07:48 Weight - Most Recent: 107 kg I&O - Last 24 hours: Intake & Output 01/10/18 01/11/18 01/11/18 22:59 06:59 14:59 Intake Total 1600 Balance 1600 Lab Results - Last 24 hrs: Laboratory Results - last 24 hr 01/10/18 01/10/18 01/10/18 Range/Units 09:32 09:32 09:32 WBC 10.02 (4.0-11.0) K/uL RBC 5.35 (4.50-5.90) M/uL Hgb 16.1 (13.0-17.0) g/dL Hct 45.3 (38.0-50.0) % MCV 84.7 (80.0-98.0) fL MCH 30.1 (27.0-32.0) pg MCHC 35.5 (31.0-37.0) g/dL RDW Std Deviation 42.7 (28.0-62.0) fl RDW Coeff of Hiram 14 (11.0-15.0) % Plt Count 222 (150-400) K/uL MPV 9.70 (7.40-12.00) fL Neut % (Auto) 61.0 (48.0-80.0) % Lymph % (Auto) 27.8 (16.0-40.0) % Gentry % (Auto) 7.1 (0.0-15.0) % Eos % (Auto) 3.7 (0.0-7.0) % Baso % (Auto) 0.4 (0.0-1.5) % Neut # (Auto) 6.1 H (1.4-5.7) K/uL Lymph # (Auto) 2.8 H (0.6-2.4) K/uL Gentry # (Auto) 0.7 (0.0-0.8) K/uL Eos # (Auto) 0.4 (0.0-0.7) K/uL Baso # (Auto) 0.0 (0.0-0.1) K/uL Nucleated RBC % 0.0 /100WBC Nucleated RBCs # 0 K/uL INR 0.95 D-Dimer, Quantitative 0.55 H (0.0-0.52) mg/LFEU Sodium 137 (136-148) mmol/L Potassium 4.2 (3.5-5.1) mmol/L Chloride 102 (98-107) mmol/L Carbon Dioxide 28.9 (21.0-32.0) mmol/L BUN 17 (7.0-18.0) mg/dL Creatinine 1.1 (0.8-1.3) mg/dL Est Cr Clr Drug Dosing 87.48 mL/min Estimated GFR (MDRD) > 60.0 ml/min Glucose 107 H (74-106) mg/dL Hemoglobin A1c (4.5-6.2) % Calcium 9.0 (8.5-10.1) mg/dL Total Bilirubin 0.6 (0.2-1.0) mg/dL AST 30 (15-37) IU/L ALT 58 (14-63) IU/L Alkaline Phosphatase 101 (46-116) U/L Troponin I < 0.050 (0.000-0.056) ng/mL Total Protein 7.3 (6.4-8.2) g/dL Albumin 3.7 (3.4-5.0) g/dL Globulin 3.6 H (2.0-3.5) g/dL Albumin/Globulin Ratio 1.0 L (1.3-2.8) Triglycerides (0-200) mg/dL Cholesterol (50-200) mg/dL LDL Cholesterol, Calc (60-180) mg/dL VLDL Cholesterol (5-55) mg/dL HDL Cholesterol (40-60) mg/dL Cholesterol/HDL Ratio (3.3-6.0) Urine Color Urine Appearance Urine pH (5.0-8.0) Ur Specific Gaastra (1.001-1.035) Urine Protein (NEGATIVE) mg/dL Urine Glucose (UA) (NEGATIVE) mg/dL Urine Ketones (NEGATIVE) mg/dL Urine Occult Blood (NEGATIVE) Urine Nitrite (NEGATIVE) Urine Bilirubin (NEGATIVE) Urine Urobilinogen (<2.0) EU/dL Ur Leukocyte Esterase (NEGATIVE) Urine RBC (0-2/HPF) Urine WBC (0-5/HPF) Ur Epithelial Cells (NONE-FEW) Urine Bacteria (NEGATIVE) 01/10/18 01/10/18 01/10/18 Range/Units 09:32 09:47 15:47 WBC (4.0-11.0) K/uL RBC (4.50-5.90) M/uL Hgb (13.0-17.0) g/dL Hct (38.0-50.0) % MCV (80.0-98.0) fL MCH (27.0-32.0) pg MCHC (31.0-37.0) g/dL RDW Std Deviation (28.0-62.0) fl RDW Coeff of Hiram (11.0-15.0) % Plt Count (150-400) K/uL MPV (7.40-12.00) fL Neut % (Auto) (48.0-80.0) % Lymph % (Auto) (16.0-40.0) % Gentry % (Auto) (0.0-15.0) % Eos % (Auto) (0.0-7.0) % Baso % (Auto) (0.0-1.5) % Neut # (Auto) (1.4-5.7) K/uL Lymph # (Auto) (0.6-2.4) K/uL Gentry # (Auto) (0.0-0.8) K/uL Eos # (Auto) (0.0-0.7) K/uL Baso # (Auto) (0.0-0.1) K/uL Nucleated RBC % /100WBC Nucleated RBCs # K/uL INR D-Dimer, Quantitative (0.0-0.52) mg/LFEU Sodium (136-148) mmol/L Potassium (3.5-5.1) mmol/L Chloride (98-107) mmol/L Carbon Dioxide (21.0-32.0) mmol/L BUN (7.0-18.0) mg/dL Creatinine (0.8-1.3) mg/dL Est Cr Clr Drug Dosing mL/min Estimated GFR (MDRD) ml/min Glucose (74-106) mg/dL Hemoglobin A1c 5.3 (4.5-6.2) % Calcium (8.5-10.1) mg/dL Total Bilirubin (0.2-1.0) mg/dL AST (15-37) IU/L ALT (14-63) IU/L Alkaline Phosphatase (46-116) U/L Troponin I < 0.050 (0.000-0.056) ng/mL Total Protein (6.4-8.2) g/dL Albumin (3.4-5.0) g/dL Globulin (2.0-3.5) g/dL Albumin/Globulin Ratio (1.3-2.8) Triglycerides (0-200) mg/dL Cholesterol (50-200) mg/dL LDL Cholesterol, Calc (60-180) mg/dL VLDL Cholesterol (5-55) mg/dL HDL Cholesterol (40-60) mg/dL Cholesterol/HDL Ratio (3.3-6.0) Urine Color YELLOW Urine Appearance CLEAR Urine pH 6.0 (5.0-8.0) Ur Specific Gaastra <= 1.005 (1.001-1.035) Urine Protein NEGATIVE (NEGATIVE) mg/dL Urine Glucose (UA) NEGATIVE (NEGATIVE) mg/dL Urine Ketones NEGATIVE (NEGATIVE) mg/dL Urine Occult Blood NEGATIVE (NEGATIVE) Urine Nitrite NEGATIVE (NEGATIVE) Urine Bilirubin NEGATIVE (NEGATIVE) Urine Urobilinogen 0.2 (<2.0) EU/dL Ur Leukocyte Esterase NEGATIVE (NEGATIVE) Urine RBC 0-1 (0-2/HPF) Urine WBC 0-1 (0-5/HPF) Ur Epithelial Cells RARE (NONE-FEW) Urine Bacteria RARE (NEGATIVE) 01/10/18 01/11/18 Range/Units 21:28 05:33 WBC (4.0-11.0) K/uL RBC (4.50-5.90) M/uL Hgb (13.0-17.0) g/dL Hct (38.0-50.0) % MCV (80.0-98.0) fL MCH (27.0-32.0) pg MCHC (31.0-37.0) g/dL RDW Std Deviation (28.0-62.0) fl RDW Coeff of Hiram (11.0-15.0) % Plt Count (150-400) K/uL MPV (7.40-12.00) fL Neut % (Auto) (48.0-80.0) % Lymph % (Auto) (16.0-40.0) % Gentry % (Auto) (0.0-15.0) % Eos % (Auto) (0.0-7.0) % Baso % (Auto) (0.0-1.5) % Neut # (Auto) (1.4-5.7) K/uL Lymph # (Auto) (0.6-2.4) K/uL Gentry # (Auto) (0.0-0.8) K/uL Eos # (Auto) (0.0-0.7) K/uL Baso # (Auto) (0.0-0.1) K/uL Nucleated RBC % /100WBC Nucleated RBCs # K/uL INR D-Dimer, Quantitative (0.0-0.52) mg/LFEU Sodium (136-148) mmol/L Potassium (3.5-5.1) mmol/L Chloride (98-107) mmol/L Carbon Dioxide (21.0-32.0) mmol/L BUN (7.0-18.0) mg/dL Creatinine (0.8-1.3) mg/dL Est Cr Clr Drug Dosing mL/min Estimated GFR (MDRD) ml/min Glucose (74-106) mg/dL Hemoglobin A1c (4.5-6.2) % Calcium (8.5-10.1) mg/dL Total Bilirubin (0.2-1.0) mg/dL AST (15-37) IU/L ALT (14-63) IU/L Alkaline Phosphatase (46-116) U/L Troponin I < 0.050 (0.000-0.056) ng/mL Total Protein (6.4-8.2) g/dL Albumin (3.4-5.0) g/dL Globulin (2.0-3.5) g/dL Albumin/Globulin Ratio (1.3-2.8) Triglycerides 126 (0-200) mg/dL Cholesterol 135 (50-200) mg/dL LDL Cholesterol, Calc 64 (60-180) mg/dL VLDL Cholesterol 25 (5-55) mg/dL HDL Cholesterol 46 (40-60) mg/dL Cholesterol/HDL Ratio 2.9 L (3.3-6.0) Urine Color Urine Appearance Urine pH (5.0-8.0) Ur Specific Gaastra (1.001-1.035) Urine Protein (NEGATIVE) mg/dL Urine Glucose (UA) (NEGATIVE) mg/dL Urine Ketones (NEGATIVE) mg/dL Urine Occult Blood (NEGATIVE) Urine Nitrite (NEGATIVE) Urine Bilirubin (NEGATIVE) Urine Urobilinogen (<2.0) EU/dL Ur Leukocyte Esterase (NEGATIVE) Urine RBC (0-2/HPF) Urine WBC (0-5/HPF) Ur Epithelial Cells (NONE-FEW) Urine Bacteria (NEGATIVE) Med Orders - Current: Current Medications Acetaminophen (Tylenol) 650 mg PO Q4H PRN PRN Reason: Pain (mild 1-3) Aspirin (Aspirin) 81 mg PO DAILY [facility] Last Admin: 01/11/18 08:15 Dose: 81 mg Morphine Sulfate (Morphine) 2 mg IVPUSH Q4H PRN PRN Reason: severe pain Ondansetron HCl (Zofran Odt) 4 mg PO Q4H PRN PRN Reason: nausea, able to take PO Sodium Chloride (Saline Flush) 10 ml FLUSH ASDIRECTED PRN PRN Reason: Keep Vein Open Sodium Chloride (Saline Flush) 2.5 ml FLUSH ASDIRECTED PRN PRN Reason: Keep Vein Open Discontinued Medications Aspirin (Aspirin) 162 mg PO ONETIME ONE Stop: 01/10/18 09:44 Last Admin: 01/10/18 09:53 Dose: 162 mg Sodium Chloride (Normal Saline) 1,000 mls @ 999 mls/hr IV STAT ONE Stop: 01/10/18 10:43 Last Admin: 01/10/18 09:57 Dose: 999 mls/hr Sodium Chloride (Normal Saline) 500 mls @ 999 mls/hr IV .BOLUS CHRIS Last Admin: 01/10/18 11:27 Dose: 999 mls/hr Iopamidol (Isovue Multipack-370 (76%)) 140 ml IVPUSH ONETIME STA Stop: 01/10/18 11:15 Last Admin: 01/10/18 11:15 Dose: 140 ml Ketorolac Tromethamine (Toradol) 30 mg IVPUSH ONETIME ONE Stop: 01/10/18 09:44 Last Admin: 01/10/18 09:54 Dose: 30 mg Morphine Sulfate (Morphine) 5 mg IVPUSH ONETIME ONE Stop: 01/10/18 09:44 Last Admin: 01/10/18 09:55 Dose: 5 mg - Exam General: Reports: Alert, Oriented, Cooperative, No Acute Distress Lungs: Reports: Clear to Auscultation, Normal Respiratory Effort Cardiovascular: Reports: Regular Rate, Regular Rhythm GI/Abdominal Exam: Normal Bowel Sounds, Soft, Non-Tender Back Exam: Reports: Normal Inspection, Full Range of Motion Skin: Reports: Warm, Dry Neurological: Reports: No New Focal Deficit Psy/Mental Status: Reports: Alert, Normal Affect, Normal Mood
[2018-01-11] MEDS ORDERED: Aspirin 81 MG Tab.Chew PO SCH (09:00)
== END 2018-01-11 09:10 | disposition home or self-care (01) ==
LOC: MW.ED 09:24 → MW.MS 11:56
PROVIDERS: ADMIT Internal Medicine; ATTEND Internal Medicine
DX: R07.89 Other chest pain (principal); E78.00 Pure hypercholesterolemia, unspecified; G47.33 Obstructive sleep apnea (adult) (pediatric); F17.210 Nicotine dependence, cigarettes, uncomplicated; E66.9 Obesity, unspecified; Z68.34 Body mass index [BMI] 34.0-34.9, adult; Z79.899 Other long term (current) drug therapy; Z91.030 Bee allergy status; Z99.89 Dependence on other enabling machines and devices
CPT/HCPCS: 36415; 71275; 80053; 80061; 81001; 83036; 84484; 85025; 85379; 85610; 93005; 96361; 96374; 96375; 99285; A9270; J1885; J2270; J7040; Q9967; 99283